=== PATIENT | male | born 1960 | race Caucasian/White ===

== ENCOUNTER 2017-12-27 22:44 | Emergency (ER) | payer BC ==
[~2017-12-27] VITALS: Ht 175.3 cm; Wt 87.0 kg
[2017-12-27 22:47] VITALS: TEMP 36.9; Ht 175.3 cm; Wt 87.0 kg
--- NOTE | 2017-12-28 00:15 | EMERGENCY ROOM VISIT NOTE ---
History First contact with patient: 23:05 Chief Complaint: EYE ASSESSMENT Stated Complaint: LOSS/REDUCTION IN FIELD OF VISION R EYE History of Present Illness The patient is a 57 year old male who presents to the Emergency Room with complaints of vision difficulty. The patient reports that his symptoms started yesterday morning. He states that when he woke up, he felt that the lower right portion of the vision of his right eye was slightly obscured. He states that this morning, he developed to pinpoint floaters in the eye which then resolved. He states that the peripheral vision of the right eye appears to be jama and slightly opacified. He denies any pain in the eye or injury to the eye. He denies any history of eye problems. He has hypertension but is otherwise healthy. He denies any numbness or weakness. He denies any slurred speech or facial drooping. He denies headache. Review of Systems A complete 10 point review of systems was reviewed with the patient with pertinent positives and negatives as per history of present illness. All else were negative. Past Medical/Surgical History Medical Problems: (1) Hypertension Social History Smoking Status: Never Smoker Marital Status: Housing Status: lives with family Occupation Status: employed Physical Exam Vital Signs Date Time Temp Pulse Resp B/P (MAP) Pulse Ox O2 Delivery O2 Flow Rate FiO2 12/28/17 00:19 64 18 156/92 96 12/27/17 22:47 36.9 77 16 160/98 96 Room Air Right Eye Acuity: 20/20 Left Eye Acuity: 20/15 Physical Exam VITALS: Vitals are noted on the nurse's note and reviewed by myself. Vital signs stable. GENERAL: This is a 57-year-old male, in no acute distress, nondiaphoretic, well- developed well-nourished. EARS: External auditory canals clear, tympanic membranes pearly jama without erythema or effusion bilaterally. EYES: Pupils equal round and reactive to light and accommodation. Extraocular movements intact. Funduscopic exam shows no hemorrhage or papilledema. Slit lamp exam shows no fluorescein uptake. MOUTH: Mucous membranes moist. Tongue does not deviate. NECK: Supple without nuchal rigidity. HEART: Regular rate and rhythm without murmurs gallops or rubs. LUNGS: Clear to auscultation bilaterally without wheezes, rales or rhonchi. MUSCULOSKELETAL: Strength 5/5 throughout. NEURO: Patient was alert and oriented to person place and time. No focal neurological deficits. Medical Decision & Procedures Medical Decision Differential diagnosis includes retinal detachment, vitreous detachment, CVA, TIA, glaucoma, corneal abrasion, among others. The patient was evaluated as above. Examination is grossly unremarkable. Patient has no neurological findings on exam. I feel that his history is most suggestive of a vitreous or retinal detachment. I did discuss possibility of this being due to a CVA, although I do not think this is very likely. I offered MRI and the patient and his state they would prefer to not perform imaging at this time if possible. I did speak with Dr. Cabello regarding the patient. He recommended follow-up first thing in the morning in the office. The patient and were informed of this treatment plan. They verbalized understanding of my assessment and treatment plan and the patient was discharged home in good condition. Medication Reconcilliation Current Medication List: was personally reviewed by me Blood Pressure Screening Patient's blood pressure: Elevated blood pressure Blood pressure disposition: Elevated BP felt to be situational Impression Primary Impression: Vision disturbance Departure Information Dispostion Home / Self-Care Condition GOOD Referrals No Doctor, Assigned (PCP) Louie Cabello MD Patient Instructions My [facility] Additional Instructions Contact Dr. Cabello's office tomorrow morning (after 8:15) to schedule an appointment in the morning. Do not eat anything before you go to the office. You may take your meds with a small sip of water. Return to the emergency department sooner if you have any total vision loss, pain, or worsening or new/concerning symptoms.
[2017-12-28 00:19] VITALS: BP 156/92; PULSE 64; O2SAT 96
[2017-12-28] MEDS ORDERED: [UNRECOGNIZED DRUG - OTHER] PO (15:29)
[2017-12-28] MEDS ORDERED: LISI-725 PO (15:29)
== END 2017-12-28 00:17 | disposition home or self-care (01) ==
LOC: C.EDB 22:45 → C.EDC 12-28 00:17
DX: H53.9 Unspecified visual disturbance (principal); I10 Essential (primary) hypertension

== ENCOUNTER → 2017-12-29 | Day surgery (SDC) | payer BC ==
[2017-12-28 15:29] VITALS: Ht 175.3 cm; Wt 84.1 kg
[~2017-12-29] VITALS: Ht 175.3 cm; Wt 84.1 kg
[~2017-12-29] MED LIST: 500ML BSSPLUS 0.5ML EPI1:1000 IRRIG ONE; ACETAMINOPHEN 325 MG TAB PO PRN; ATROPINE SULFATE 0.1 MG/ML 5ML SYR IV PRN; ATROPINE SULFATE 1% OP SOLN 2 ML BTL ONE; BRIMONIDINE TART 0.2% OP SOLN PER DROP CHARGE ONE; BSS FLUSH ONE; BUPIVACAINE HCL 0.75% 10 ML AMP/VIAL ONE; CEFAZOLIN SOD 1 GM VIAL ONE; DEXAMETHASONE SOD INJ 4 MG/ML VIAL ONE; EpINEphrine INJ 1MG/ML AMP 1 MG/ML AMP ONE; FENTANYL CITRATE INJ 50 MCG/1 ML 2 ML VIAL IV PRN; FENTANYL CITRATE INJ 50 MCG/1 ML 2 ML VIAL ONE; HYALURONIDASE HUMAN 150 UNIT/ML INJ ONE; INDOCYANINE GREEN 25 MG/10 ML ONE; LABETALOL HCL IV 5 MG/ML 20ML IV PRN; LACTATED RINGER'S 1000ML 500 ML IV SCH; LIDOCAINE 4% OP SOLN DROP CHARGE ONE; LIDOCAINE HCL 1% MPF 2 ML VIAL ONE; LIDOCAINE HCL 2% 2 ML VIAL (20MG/ML) ONE; LISI-725 PO; MIDAZOLAM HCL 1 MG/ML 2ML VIAL ONE; MOXIFLOXACIN OPH SOLN PER DROP CHARGE ONE; NEOMYCIN/POLYMYX/DEXAMETH OP OINT PER APP CHARGE ONE; OCUCOAT 1 ML SOLN IO ONE; ONDANSETRON INJ 2 MG/ML 2 ML VIAL IV PRN; PATIENT'S ALLERGY INFO NEEDS ENTERED SCH; POVIDONE-IODINE OP SOLN (SURGERY CNTR CHARGING ONLY) ONE; POVIDONE-IODINE OP SOLN 30 ML BTL ONE; PROPARACAINE 0.5% OP SOLN PER DROP CHARGE OPR SCH; PROPOFOL IV EMULSION 10 MG/ML 20 ML VIAL ONE; TIMOLOL MALEATE 0.5% OP SOLN PER DROP CHARGE ONE; TOBRAMYCIN/DEXAMETHASONE OPH OINT PER APPLN CHARGE ONE; TRIAMCINOLONE ACETONIDE OPHTH 40 MG/ML VIAL STERILE ONE; [UNRECOGNIZED DRUG - OTHER] PO
[2017-12-29] MEDS: PHENYLEPHRINE HCL 2.5% OP SOLN PER DROP CHARGE OPR SCH ×2 (11:01→11:06)
[2017-12-29] MEDS: TROPICAMIDE 1% OP SOLN PER DROP CHARGE OPR SCH ×2 (11:02→11:07)
--- NOTE | 2017-12-29 11:59 | History & Physical Bridge - SC ---
H&P Re-Evaluation Bridge Note: Pt has retinal detachment right eye and is having vitrectomy right eye. I have examined the patient, reviewed the History & Physical and in the interval since the performance of the History & Physical I have noted the following changes of clinical significance: No changes noted
--- NOTE | 2017-12-29 13:10 | [facility] Operative Report ---
Operative Report Date of Service December 29, 2017. Operative Report PREOPERATIVE DIAGNOSIS: Macula-off Retinal detachment, right eye. ICD 10: H33.021 POSTOPERATIVE DIAGNOSIS: same. PROCEDURE: 1. Pars plana vitrectomy, 23 gauge. 2. Fluid-air exchange. 3. Endolaser. 4 Air-gas exchange with SF6 20%. All to the right eye. CPT CODE: 48659 SURGEON: Preston Abarca D.O. COMPLICATIONS: None. ESTIMATED BLOOD LOSS: None. SPECIMENS: None. ANESTHESIA: Retrobulbar block and MAC. INDICATIONS FOR PROCEDURE: Surgery is indicated to decrease risk of vision loss and potentially improve vision. CONSENT: The risks, benefits and alternatives were discussed with the patient including but not limited to decreased visual acuity, failure to achieve desired results, loss of the eye, infection, pain, glaucoma, lens changes, retinal tears, retinal detachment, the need for more procedures, drooping of the eyelid, blindness, and double vision. The patient is aware of risks and consents to the surgery. Consent is signed and on the chart. OPERATION AND FINDINGS: The patient was brought to the operating room where the patient was identified by name, date, and medical record number. The surgical site was confirmed with the informed written consent. The patient was sedated by the anesthesiology team after which a 50:50 mixture of 2% lidocaine and 0.75% bupivacaine with hyaluronidase was administered in a standard retrobulbar fashion. A total of 4 ml was administered without difficulty. The patient was then prepped and draped in the usual sterile manner for retinal surgery. A wire lid speculum was placed and an Chun 23-gauge trocar cannula system was employed. The inferior temporal trocar cannula was first placed in an angled fashion 3.75mm posterior to the surgical limbus and the infusion cannula was inserted into this cannula after which the intravitreal position was verified prior to turning the infusion on. Two more trocar cannulas were then inserted in an angled fashion, one in the superior temporal, and one in the superior nasal quadrant both 3.75mm posterior to the surgical limbus. A light pipe and vitrector were then introduced into the eye and the BIOM wide angle viewing system was brought into place. Posterior inspection revealed a retinal detachment from 10 to 2:30 o'clock with the inciting retinal break at 12 and 12:30 o'clock. The detahment was bullous and the fovea macula was detached. Standard core vitrectomy was performed and the vitreous was insured to be totally detached from the posterior pole with the aid of the vitrector. The vitreous base was shaved for 360 degrees. At this point scleral depression was performed for 360 degrees and no other retinal tears were noted. Fluid air exchange was performed and the subretinal fluid was drained through a small retinotomy site that was fashioned superior to the optic nerve. Endolaser was then used to place laser around the inciting retinal break and the drainage retinotomy. Next, an air gas exchange was performed with SF620% for a complete fill of the eye. The trocar cannulas were then removed and found to be air tight. The intraocular pressure was found to be within normal limits by palpation and subconjunctival injections of Kefzol and dexamethasone were administered inferiorly and superiorly. The wire lid speculum was removed. Maxitrol, atropine and timolol were applied to the surface of the eye. A light patch and shield were taped over the surface of the eye and the patient left the Operating Room in stable condition having tolerated the procedure well. DISPOSITION: A gas bracelet was placed on the patient's wrist and gas precautions reviewed as well as the positioning instructions. The patient has an appointment the following morning in the Ophthalmology Clinic. The patient is to call immediately if there are any problems overnight. I attest to the content of the Intraoperative Record and any orders documented therein. Any exceptions are noted below.
--- NOTE | 2017-12-29 13:14 | Discharge Instructions-SurgCtr ---
Discharge Instructions Date of Service December 29, 2017. Visit Reason for Visit: Right Eye Retinal Detachment Discharge Discharge Diagnosis / Problem: same Discharge Goals Goal(s): Improve function Activity Recommendations Activity Limitations: per Instructions/Follow-up section Anesthesia . Post Anesthesia Instructions: If you have had General Anesthesia or IV Sedation: * Do not drive today. * Resume driving when surgeon permits. * Do not make important decisions or sign legal documents today. * Call surgeon for: 1. Temperature elevations greater than 101 degrees F. 2. Uncontrollable pain. 3. Excessive bleeding. 4. Persistent nausea and vomiting. 5. Medication intolerance (nausea, vomiting or rash). * For nausea and vomiting use only clear liquids such as: tea, soda, bouillon until nausea subsides, then gradually increase diet as tolerated. * If you have any concerns or questions, call your surgeon's office. If physician is unavailable and it is an emergency, call 911 or go to the nearest emergency room. . Instructions / Follow-Up Instructions / Follow-Up * May take Tylenol if needed for discomfort. * Do NOT lay flat on back and position head as follows: face down during daytime. Sleep either side down flat (right side better) with head turned toward floor. * Do NOT remove green bracelet until instructed to do so by your surgeon and follow these precautions: * No air travel * No travel above 2500 feet * No nitrous oxide (N2O). * Do NOT remove eye shield. * NO straining, heavy lifting (>15 pounds) or bending below waist. * Avoid getting water or soap directly into operative eye. * Do NOT rub eye. If you experience increasing eye pain not relieved by medication, please contact us immediately at [phone]. If you are unable to reach someone at the above number, call [phone] and ask to speak with the EYE DOCTOR [employer]ER. Inform them that you are a Dr. Abarca patient who had recent surgery. Diet Recommendations Home Diet: resume previous diet Procedures Procedures Performed: Right Eye 23 Gauge Vitrectomy, Endolaser, SF6 Gas Insertion Pending Studies Studies pending at discharge: no Medical Emergencies . Who to Call and When: Medical Emergencies: If at any time you feel your situation is an emergency, please call 911 immediately. . Non-Emergent Contact Non-Emergency issues call your: Statistical Financial Analyst . . "Provider Documentation" section prepared by Preston Abarca. .
[2017-12-29 13:40] VITALS: BP 147/82; PULSE 53; O2SAT 96
--- NOTE | 2017-12-29 14:15 | Anesthesia Progress Nt - [facility] ---
Anesthesia Post Op Note Date & Time December 29, 2017 at 14:14 Vital Signs Pain Intensity: 0 Vital Signs Past 12 Hours Date Time Temp Pulse Resp B/P (MAP) Pulse Ox O2 Delivery O2 Flow Rate FiO2 12/29/17 13:40 53 18 147/82 (103) 96 Room Air 12/29/17 13:12 36.6 59 12 133/90 (104) 96 Room Air 12/29/17 10:54 36.5 80 16 157/91 (113) 98 Room Air Notes Mental Status: alert / awake / arousable, participated in evaluation Pt Amnestic to Procedure: Yes Nausea / Vomiting: adequately controlled Pain: adequately controlled Airway Patency, RR, SpO2: stable & adequate BP & HR: stable & adequate Hydration State: stable & adequate Anesthetic Complications: no major complications apparent
== END | disposition home or self-care (01) ==
LOC: X.SURG 10:46
PROVIDERS: ATTEND Ophthalmology
DX: H33.021 Retinal detachment with multiple breaks, right eye (principal); J45.909 Unspecified asthma, uncomplicated; I10 Essential (primary) hypertension; Z79.899 Other long term (current) drug therapy; Z88.2 Allergy status to sulfonamides; Z83.3 Family history of diabetes mellitus; Z82.49 Family history of ischemic heart disease and other diseases of the circulatory system; Z83.49 Family history of other endocrine, nutritional and metabolic diseases; Z80.6 Family history of leukemia